=== PATIENT | male | born 1995 | race American Indian/Alaskan Native ===

== ENCOUNTER 2020-03-01 14:13 | Emergency (ER) | payer SELFPAY ==
[2020-03-01] MEDS ORDERED: ACETAMINOPHEN 325 MG TAB PO ONE (15:58)
--- NOTE | 2020-03-01 16:26 | XRay Report ---
CHEST 2 VIEWS INDICATION: fever, cough. COMPARISON: None. FINDINGS: Support devices: None. Heart: Within normal limits. Lungs/Pleura: No acute air space or interstitial disease. No significant pleural effusion. IMPRESSION: No acute findings. Signer Name: Mani Rick MD Signed: 03/01/2020 4:22 PM Workstation Name: [id number]
--- NOTE | 2020-03-01 17:52 | Emergency Department Report ---
ED Fever HPI - General Chief Complaint: Fever Stated Complaint: CHILLS Time Seen by Provider: 03/01/20 17:09 - History of Present Illness Initial Comments: This is a 24-year-old male nontoxic, well nourished in appearance, no acute signs of distress presents to the ED with c/o of fever, body aches, and loss of taste. Patient denies any cough. Patient denies any sick contacts. Patient denies any recent travels, long car, recent hospital stays. Patient denies any calf pain or calf tenderness. Patient denies any chest pain, short of breath, nausea, vomiting, hemoptysis, numbness, tingling, headache or stiff neck. Timing/Duration: yesterday Fever Severity/Quality: low grade Associated Symptoms: denies symptoms. denies: abdominal pain, chest pain, confusion, cough, diaphoresis, headache, muscle aches, nausea/vomiting, rash, shortness of breath, sore throat, stiff neck, syncope, weakness ED Review of Systems ROS: Stated complaint: CHILLS Other details as noted in HPI Constitutional: chills, fever Eyes: denies: eye pain, eye discharge, vision change ENT: denies: ear pain, throat pain Respiratory: denies: cough, shortness of breath, wheezing Cardiovascular: denies: chest pain, palpitations Endocrine: no symptoms reported Gastrointestinal: denies: abdominal pain, nausea, vomiting, diarrhea Genitourinary: denies: urgency, dysuria Musculoskeletal: denies: back pain, joint swelling, arthralgia Skin: denies: rash, lesions Neurological: denies: headache, weakness, paresthesias Psychiatric: denies: anxiety, depression Hematological/Lymphatic: denies: easy bleeding, easy bruising ED Past Medical Hx - Past Medical History Previous Medical History?: No - Surgical History Past Surgical History?: No - Social History Smoking Status: Never Smoker Substance Use Type: None - Medications Home Medications: Home Medications Medication Instructions Recorded Confirmed Last Taken Type Acetaminophen [Acetaminophen 8 650 mg PO Q8H PRN #20 tablet.er 03/01/20 Unknown Rx Hour] ED Physical Exam - General Limitations: No Limitations General appearance: alert, in no apparent distress - Head Head exam: Present: atraumatic, normocephalic - Eye Eye exam: Present: normal appearance - ENT ENT exam: Present: normal exam, normal orophraynx - Neck Neck exam: Present: normal inspection, full ROM. Absent: tenderness, meningismus, lymphadenopathy - Respiratory Respiratory exam: Present: normal lung sounds bilaterally. Absent: respiratory distress, wheezes, rales, rhonchi, stridor, chest wall tenderness, accessory muscle use, decreased breath sounds, prolonged expiratory - Cardiovascular Cardiovascular Exam: Present: regular rate, normal rhythm, normal heart sounds. Absent: irregular rhythm, systolic murmur, diastolic murmur, rubs, gallop - GI/Abdominal GI/Abdominal exam: Present: soft, normal bowel sounds. Absent: distended, tenderness, guarding, rebound, rigid, diminished bowel sounds - Extremities Exam Extremities exam: Present: normal inspection, full ROM - Back Exam Back exam: Present: normal inspection, full ROM. Absent: tenderness, CVA tenderness (R), CVA tenderness (L), muscle spasm, paraspinal tenderness, vertebral tenderness, rash noted - Neurological Exam Neurological exam: Present: alert, oriented X3, normal gait - Psychiatric Psychiatric exam: Present: normal affect, normal mood - Skin Skin exam: Present: warm, dry, intact, normal color. Absent: rash ED Course Vital Signs 03/01/20 03/01/20 15:58 17:19 Temperature 100.2 F H Pulse Rate 101 H Respiratory 20 18 Rate Blood Pressure 150/103 O2 Sat by Pulse 99 Oximetry - Reevaluation(s) Reevaluation #1: 03/01/20 17:47 Patient is speaking in full sentences with no signs of distress noted. ED Medical Decision Making - Radiology Data Referring Physician: WAYNE GALVAN Patient Name: ENE PEREZ Date of : 1995 Sex: Male Report Date: 2020-03-01 Report Status: Finalized [facility] [address] [place] [address] XRay Report Signed Patient: ENE PEREZ MR#: [id number] : 1995 Acct:[id number] Age/Sex: 24 / M ADM Date: 03/01/20 Loc: ED Attending Dr: Ordering Physician: WAYNE GALVAN Date of Service: 03/01/20 Procedure(s): XR chest routine 2V Accession Number(s): [id number] cc: WAYNE GALVAN Fluoro Time In Minutes: CHEST 2 VIEWS INDICATION: fever, cough. COMPARISON: None. FINDINGS: Support devices: None. Heart: Within normal limits. Lungs/Pleura: No acute air space or interstitial disease. No significant pleural effusion. IMPRESSION: No acute findings. Signer Name: Mani Rick MD Signed: 03/01/2020 4:22 PM Workstation Name: [email or web address] Transcribed By: ES Dictated By: Mani Rick MD Electronically Authenticated By: Mani Rick MD Signed Date/Time: 03/01/201621 DD/ 20 TD/TT: - Medical Decision Making This is a 24-year-old male that presents with suspected covid Patient is stable and was examined by me. Chest x-ray has been obtained and dictated by radiologist with normal exam. Patient is notified of x-ray results with no questions noted. Patient was instructed to self quarantine and seek medical attention as soon as possible if symptoms worsen. Was given information where to get COVID testing. Patient was instructed to increase hydration, rest and take Tylenol for fever episodes. Patient received Tylenol in the ED. Vitals stable. Patient is nonfebrile and normal heart rate. Patient was instructed Follow-up with a primary care doctor in 3-5 days or if symptoms worsen and continue return to emergency room as soon as possible. At time time of discharge, the patient does not seem toxic or ill in appearance. No acute signs of distress noted. Patient agrees to discharge treatment plan of care. No further questions noted by the patient.nt. Critical care attestation.: If time is entered above; I have spent that time in minutes in the direct care of this critically ill patient, excluding procedure time. ED Disposition Clinical Impression: Suspected COVID-19 virus infection Disposition: DC-01 TO HOME OR SELFCARE Is pt being admited?: No Does the pt Need Aspirin: No Condition: Stable Instructions: COVID-19 Additional Instructions: Follow-up with a primary care doctor in 3-5 days or if symptoms worsen and continue return to emergency room as soon as possible. Increased rest, hydration, and take Tylenol as prescribed for fever episode. Self quarantine self until COVID testing results. If positive you must self quarantine for 14 days. COVID-19 Testing [facility] [address] [facility] [address] Prescriptions: Acetaminophen [Acetaminophen 8 Hour] 650 mg PO Q8H PRN #20 tablet.er PRN Reason: fever/pain Referrals: PRIMARY CAREMD [Primary Care Provider] - 3-5 Days BONIFACIO AMES MD [Staff Physician] - 3-5 Days [facility] [Provider Group] - 3-5 Days Forms: Work/School Release Form(ED)
[2020-03-01 18:22] VITALS: BP 140/100
== END 2020-03-01 18:30 | disposition home or self-care (01) ==
LOC: ED 14:13
DX: Z20.828 Contact with and (suspected) exposure to other viral communicable diseases (principal); Z79.899 Other long term (current) drug therapy
CPT/HCPCS: 71046